=== PATIENT | male | born 1960 | race Caucasian/White ===

== ENCOUNTER 2016-11-02 22:38 | Emergency (ER) | payer OTHER ==
[~2016-11-02 22:38] MED LIST: *UNABLE1; ALEVE220 MG PO; ASAB PO; BLOOD PRESSURE RX #1 PO; BLOOD PRESSURE RX #2 PO; BP MED #1 PO; BP MED PO; CYMBALTA60 PO; DUONEB INH; FLORINEF0.1 MG PO; GABAPENTIN PO; KDUR20 PO; KLOR-CON M2020 MEQ PO; LIPITOR40 PO; LOP25 PO; MSCONT15 PO; MYRBETRIQ50 MG PO; NEUR600 PO; NEUR800 PO; NEURONTIN PO; NITROSTAT0.4 MG SL; POTASSIUM RX PO; PROAMATINE10 MG PO; REQUIP2 PO; RESCUE INHALER INH; RESTORIL30 MG PO; ROXICODONE15 MG PO; SEROQUEL 200 MG PO; SEROQUEL200 MG PO; TEMAZEPAM PO; VENTOLIN HFA INH; XANAX1 MG PO; [UNRECOGNIZED DRUG - REMARK] PO
[2017-01-15] MEDS ORDERED: ZANAFLEX 4 MG TA4 MG PO (08:12)
[2017-01-15] MEDS ORDERED: PRILO PO (08:13)
[2017-01-15] MEDS ORDERED: TRAZODONE300 MG PO (08:15)
[2017-01-15] MEDS ORDERED: ENDOCET1 TA3 PO (08:16)
[2017-01-15] MEDS ORDERED: MEDS (08:51)
== END 2016-11-03 00:17 | disposition left against medical advice (07) ==
LOC: ER 22:38
DX: K59.00 Constipation, unspecified (principal); F17.200 Nicotine dependence, unspecified, uncomplicated; D64.9 Anemia, unspecified; J44.9 Chronic obstructive pulmonary disease, unspecified; Z79.899 Other long term (current) drug therapy; Z79.82 Long term (current) use of aspirin; Z53.21 Procedure and treatment not carried out due to patient leaving prior to being seen by health care provider
CPT/HCPCS: 74176; 80053; 81001; 83690; 85025